=== PATIENT | female | born 1935 | race Caucasian/White ===

== ENCOUNTER → 2016-07-07 | Outpatient (CLI) | payer MEDICARE, OTHER ==
[~2016-07-07] MED LIST: BISA10SU65 RC; CARV12.530 PO; CEFU250T58 PO; CITA10TA49 PO; FURO-33 PO; HYDR-1372 PO; LEVO50TA72 PO; LOSA100T44 PO; MAGN800O4 PO; MULT-21 PO; OXYB5TAB73 PO; PANT40TA32 PO; POLY17PO3 PO; POTA20TA69 PO; PRED1TAB17 PO; SIMV40TA82 PO; TOPI25TA36 PO; [UNRECOGNIZED DRUG - CODE]; [UNRECOGNIZED DRUG - CODE] PO; [UNRECOGNIZED DRUG - CODE] PO; [UNRECOGNIZED DRUG - CODE] PO
== END ==
LOC: NWCC 10:38
PROVIDERS: ATTEND Internal Medicine
DX: L98.494 Non-pressure chronic ulcer of skin of other sites with necrosis of bone (principal); S01.00XA Unspecified open wound of scalp, initial encounter; W01.198S Fall on same level from slipping, tripping and stumbling with subsequent striking against other object, sequela; Z85.828 Personal history of other malignant neoplasm of skin; B95.62 Methicillin resistant Staphylococcus aureus infection as the cause of diseases classified elsewhere; Z86.14 Personal history of Methicillin resistant Staphylococcus aureus infection
CPT/HCPCS: 11042; 15004; 15275; A6021; A6207; A6210; Q4172

== ENCOUNTER → 2016-07-14 | Outpatient (CLI) | payer MEDICARE, OTHER | LOC: NWCC 11:17 | PROVIDERS: ATTEND Internal Medicine | DX: L98.492 Non-pressure chronic ulcer of skin of other sites with fat layer exposed (principal); Z85.828 Personal history of other malignant neoplasm of skin; S01.00XA Unspecified open wound of scalp, initial encounter; W01.198S Fall on same level from slipping, tripping and stumbling with subsequent striking against other object, sequela; Z86.14 Personal history of Methicillin resistant Staphylococcus aureus infection | CPT/HCPCS: 11042; 15004; 15275; A6207; A6210; G0463; Q4172 ==

== ENCOUNTER → 2016-07-21 | Outpatient (CLI) | payer MEDICARE, OTHER ==
[~2016-07-21] MED LIST changes: +SALINE FLUSH 10ml SYRINGE IVF ONE
== END ==
LOC: NWCC 10:50
PROVIDERS: ATTEND Internal Medicine
DX: L98.494 Non-pressure chronic ulcer of skin of other sites with necrosis of bone (principal); Z85.828 Personal history of other malignant neoplasm of skin; Z86.14 Personal history of Methicillin resistant Staphylococcus aureus infection
CPT/HCPCS: 11042; 15004; 15275; A6021; A6207; A6210; G0463; Q4172

== ENCOUNTER → 2016-07-28 | Outpatient (CLI) | payer MEDICARE, OTHER ==
[~2016-07-28] MED LIST changes: -SALINE FLUSH 10ml SYRINGE IVF ONE
== END ==
LOC: NWCC 10:12
PROVIDERS: ATTEND Internal Medicine
DX: L98.494 Non-pressure chronic ulcer of skin of other sites with necrosis of bone (principal); Z85.828 Personal history of other malignant neoplasm of skin; B95.62 Methicillin resistant Staphylococcus aureus infection as the cause of diseases classified elsewhere; Z86.14 Personal history of Methicillin resistant Staphylococcus aureus infection
CPT/HCPCS: 11042; 15004; 15275; A6207; A6210; G0463; Q4172

== ENCOUNTER → 2016-08-06 | Outpatient (CLI) | payer MEDICARE, OTHER ==
[~2016-08-06] MED LIST changes: +SALINE FLUSH 10ml SYRINGE IVF ONE
== END ==
LOC: NWCC 14:07
PROVIDERS: ATTEND Internal Medicine
DX: L98.492 Non-pressure chronic ulcer of skin of other sites with fat layer exposed (principal); Z85.828 Personal history of other malignant neoplasm of skin; B96.89 Other specified bacterial agents as the cause of diseases classified elsewhere; Z86.14 Personal history of Methicillin resistant Staphylococcus aureus infection
CPT/HCPCS: 11042; 11044; 15275; A6207; A6210; G0463; Q4172

== ENCOUNTER → 2016-08-13 | Outpatient (CLI) | payer MEDICARE, OTHER | LOC: NWCC 13:23 | PROVIDERS: ATTEND Internal Medicine | DX: L98.494 Non-pressure chronic ulcer of skin of other sites with necrosis of bone (principal); M86.68 Other chronic osteomyelitis, other site; Z85.828 Personal history of other malignant neoplasm of skin; Z86.14 Personal history of Methicillin resistant Staphylococcus aureus infection; B95.62 Methicillin resistant Staphylococcus aureus infection as the cause of diseases classified elsewhere | CPT/HCPCS: 11042; 15004; 15275; 87070; 87075; 87147; 87205; A6207; A6210; G0463; Q4172 ==

== ENCOUNTER → 2016-08-20 | Outpatient (CLI) | payer MEDICARE, OTHER ==
[~2016-08-20] MED LIST changes: -SALINE FLUSH 10ml SYRINGE IVF ONE
== END ==
LOC: NWCC 13:13
PROVIDERS: ATTEND Internal Medicine
DX: L98.494 Non-pressure chronic ulcer of skin of other sites with necrosis of bone (principal); Z85.828 Personal history of other malignant neoplasm of skin; L98.492 Non-pressure chronic ulcer of skin of other sites with fat layer exposed; M86.68 Other chronic osteomyelitis, other site; B95.62 Methicillin resistant Staphylococcus aureus infection as the cause of diseases classified elsewhere; Z86.14 Personal history of Methicillin resistant Staphylococcus aureus infection
CPT/HCPCS: 11042; A6021; A6207; A6210; G0463